=== PATIENT | female | born 1930 | race Caucasian/White ===

== ENCOUNTER 2016-09-17 09:53 | Emergency (ER) | payer MEDICARE, OTHER ==
[~2016-09-17] VITALS: Ht 167.6 cm; Wt 81.8 kg
[~2016-09-17 09:53] MED LIST: ACET325T51 PO; AMOX-366 PO; BISA-67 PO; BRIM5DRO AFFECT_EYE; CHOL100043 PO; CIPR-231 PO; GLUC500T12 PO; GUAI118L13 PO; LATA2.5D6 AFFECT_EYE; LEVO75TA4 PO; LORA0.5T PO; LOSA50TA37 PO; MAG DELAY64 MG PO; MAGN800O PO; MELA3TAB35 PO; MIRT15TA6 PO; MV,C1TAB15 PO; POLY17PO6 PO; POTA10TA12 PO; SENN-133 PO
[2016-09-17 09:56] VITALS: BP 188/98; PULSE 83; RESP 16; O2SAT 95
--- NOTE | 2016-09-17 10:05 | ED.REPORT ---
HPI-Abd Pain F 40 and Over Date of Service Sep 17, 2016 ED Provider: Dr. Trejo Pt is an 86 year old female with a history of HTN, dementia and hypothyroidism who was sent to the ED from an urgent care facility with concerns for increasing back and abdominal pain for the past 2 days. She reports that the pain has been persistent and has been worsening since its onset. The pain is aggravated with movement. She describes the pain as sharp, and denies any injury. Her son presents with her and reports that there is concern for a UTI. She reports increased urinary frequency, but denies fever, vomiting, diarrhea, chest pain, shortness of breath, headache, lower extremity pain, or any other symptoms. She reports that she has felt constipated for the last couple of days. Nursing Notes Stated Complaint: BACK PAIN Chief Complaint: Female Abdominal Pain Nursing Notes Reviewed: Yes Allergies: Coded Allergies: carisoprodol (Verified Allergy, Severe, 09/17/16) bacitracin (Verified Allergy, Unknown, 09/17/16) neomycin (Verified Allergy, Unknown, 09/17/16) polymyxin B (Verified Allergy, Unknown, 09/17/16) Scheduled Amoxicillin/Clav K 875-125 mg (Augmentin 875-125 mg) 1 Each Tablet 1 TABLET PO BID Brimonidine Tartrate/Timolol (Combigan Eye Drops) 5 Ml Drops 1 GTT AFFECT_EYE BID instill 1 drop in left eye twice daily Cholecalciferol (Vitamin D3) (Vitamin D) 1,000 Unit Tablet 2,000 UNIT PO DAILY Ciprofloxacin (Cipro) 500 Mg Tablet 500 MG PO BID Glucosamine (Glucosamine) 500 Mg Tablet 500 MG PO BID Latanoprost (Latanoprost) 2.5 Ml Drops 1 GTT AFFECT_EYE HS instill 1 drop into left eye once daily Levothyroxine (Levothyroxine) 75 Mcg Tablet 75 MCG PO DAILY Losartan Potassium (Losartan Potassium) 50 Mg Tablet 50 MG PO DAILY Magnesium (Mag Delay) 64 Mg Tab 64 MG PO BID Melatonin (Melatonin) 3 Mg Tablet 3 MG PO HS Mirtazapine (Mirtazapine) 15 Mg Tablet 15 MG PO HS Mv,Ca,Min/Iron Fum/FA/Lyco/Lut (S[employer] Multivit [employer] Mineral Cplt) 1 Each Tablet 1 EACH PO DAILY Polyethylene Glycol 3350 (Miralax) 17 Gm Powd.pack 17 GM PO DAILY Potassium Chloride ER (Potassium Chloride ER) 10 Meq Tablet 10 MEQ PO DAILY TAKE WITH FOOD Scheduled PRN Acetaminophen (Acetaminophen) 325 Mg Tablet 650 MG PO Q4H PRN PRN For Fever Bisacodyl (Dulcolax) 5 Mg Tablet.dr 5 MG PO DAILY PRN PRN For Constipation Guaifenesin/Codeine Phosphate (Cheratussin AC Syrup) 118 Ml Liquid 5 ML PO HS PRN PRN For Cough Lorazepam (Lorazepam) 0.5 Mg Tablet 0.25 MG PO BID PRN PRN For Anxiety Magnesium Hydroxide (Milk of Magnesia) 2,400 Mg/10 Ml Oral.susp 2,400 MG PO DAILY PRN PRN For Constipation Sennosides (Senna) 8.6 Mg Tablet 8.6 MG PO DAILY PRN PRN For Constipation General Time Seen by MD: 10:04 Chief Complaint Abdominal pain, Other (Back Pain) Hx Obtained From: Patient, Son Arrived By: Walk-in Sudden in Onset?: Yes Onset Occurred: 2 days ago Symptom Duration: Since onset Location: : Diffuse Quality: Painful Radiation: : Back Severity: Current: Moderate Severity: Maximum: Moderate Similar Sx Previous: Yes Past Medical History Past Medical History Blind in right eye Glaucoma Osteoarthritis Bilateral cataracts Hypothyroidism Dementia Anxiety Reports: Hypertension Past Surgical History Reports: Appendectomy, , Hysterectomy Smoking History Never Smoker Review of Systems Constitutional: Denies: Chills, Fever, Malaise, Weakness - generalized Respiratory: Denies: Non-productive cough, Shortness of breath, Wheezing Cardiovascular: Denies: Chest pain, Syncope GI: Reports: Abdominal pain, Constipation, Denies: Diarrhea, Nausea, Vomiting Female: Reports: Urinary frequency, Denies: Dysuria, Flank pain Musculoskeletal: Reports: Back pain, Denies: Neck pain Complete sys rev & neg: except as marked. Physical Exam Vital Signs Vital Signs (First) Date Time Temp Pulse Resp B/P Pulse Ox O2 Delivery O2 Flow Rate FiO2 09/17/16 09:56 36.6 83 16 188/98 95 Room Air Initial VS: Reviewed Head / Eyes: Atraumatic, Normocephalic, PERRL ENT: Mucous membranes moist, Conjunctiva normal, No scleral icterus Neck: Supple, Non-tender, Full range of motion Skin: Warm, Dry, No cyanosis Neurologic: Alert, Oriented, Nonfocal General/Constitutional: Awake, Alert Respiratory / Chest: Atraumatic, Breath sounds NL, Breath sounds = bilat, No respiratory distress, No rales, No rhonchi, No wheezing Cardiovascular: Heart rate NL, Regular rhythm, Heart sounds NL, No gallop, No murmurs, No rubs No peripheral edema Abdomen: Soft Discrete tenderness in the RLQ with guarding Back: Atraumatic discrete paraspinal tenderness about the lumbar region Interpretation & Diagnostics Lab Results Interpretation Result Diagram: 09/17/16 1030 09/17/16 1030 Test 09/17/16 10:30 09/17/16 11:00 White Blood Count 5.9th/mm3 (3.8-10.1) Red Blood Count 4.57mil/mm3 (3.90-5.20) Hemoglobin 13.9g/dL (12.0-15.6) Hematocrit 41.1% (35.0-46.0) Mean Corpuscular Volume 89.9fL (81-100) Mean Corpuscular Hemoglobin 30.4pg (27.0-35.0) Mean Corpuscular Hemoglobin Concent 33.8% (32.0-37.0) Red Cell Distribution Width 13.2% (12.3-15.4) Platelet Count 213bil/L (150-400) Neutrophils (%) (Auto) 70.2% (40-74) Lymphocytes (%) (Auto) 18.8% (14-46) Monocytes (%) (Auto) 7.4% (4-12) Eosinophils (%) (Auto) 3.4% (0-5) Basophils (%) (Auto) 0.2% (0-3) Sodium Level 135mEq/L (134-144) Potassium Level 4.1mEq/L (3.5-5.2) Chloride Level 96mEq/L (97-108) Carbon Dioxide Level 25mmol/L (18-29) Blood Urea Nitrogen 17mg/dL (8-27) Creatinine 0.74mg/dL (0.57-1.00) Estimat Glomerular Filtration Rate 106mL/min (>59) Glucose Level 115mg/dL (60-99) Lactic Acid Level 1.2mmol/L (0.4-2.0) Calcium Level 9.6mg/dL (8.5-10.1) Total Bilirubin 0.5mg/dL (0.0-1.2) Aspartate Amino Transf (AST/SGOT) 39U/L (0-50) Alanine Aminotransferase (ALT/SGPT) 27U/L (0-32) Alkaline Phosphatase 91U/L (25-165) Total Protein 7.6g/dL (6.4-8.4) Albumin 4.3g/dL (3.4-5.0) Lipase 50U/L (13-60) Urine Color Straw (YELLOW) Urine Appearance Clear (CLEAR,HAZY) Urine pH 7.0 (5.0-8.0) Urine Specific [place] 1.015 (1.003-1.035) Urine Protein Negativemg/dL (NEG,TRACE) Urine Glucose (UA) Negativemg/dL (NEGATIVE) Urine Ketones Negativemg/dL (NEGATIVE) Urine Occult Blood Negative (NEGATIVE) Urine Nitrite Negative (NEGATIVE) Urine Bilirubin Negative (NEGATIVE) Urine Urobilinogen Normalmg/dL (NORMAL) Urine Leukocyte Esterase Negative (NEGATIVE) Urine RBC 0-2/hpf (0-2) Urine WBC 0-5/hpf (0-5) Urine Epithelial Cells Occasional/hpf (NONE-MOD) Urine Crystals None seen (NONE SEEN) Urine Bacteria Moderate/hpf (NONE-FEW) Urine Hyaline Casts None/lpf (NONE) Urine Granular Casts None seen (NONE SEEN) Urine Waxy Casts None seen (NONE SEEN) Urine Red Blood Cell Casts None seen (NONE SEEN) Urine White Blood Cell Casts None seen (NONE SEEN) Urine Mucus None seen (None Seen) Urine Trichomonas None seen (NONE SEEN) Urine Yeast None (NONE SEEN) Urinalysis Comment None Urine Culture Reflexed Indicated ECG Interpretation ECG Interpretation: SR - 78 Multiple PVCs Borderline prolonged LA interval Probable left atrial enlargement LVH Inferior infarct Time: 10:26 Interpreted by: ED physician CT Abd / Pelvis Interpretation IMPRESSION: 1. Right lower quadrant anterior abdominal wall hernia may represent a spigelian hernia and contains nonobstructed ilium. 2. Low-density dilatation of the right common femoral vein may represent venous thrombus. Recommend correlation with ultrasound. 3. Low-density hepatic nodule most consistent with a simple cyst. Recommend confirmation with ultrasound which may be performed on a nonemergent basis. 4. Findings and recommendations discussed with Dr. Trejo via telephone [phone] at 12:20 pm on 09/17/2016 Dictated by: Harsha Greer M.D. on 09/17/2016 at 12:19 Interpretation / Wet Read by: Interpret - Radiologist, Discussed w radiologist Re-Eval/Medical Decision Source of Hx: Old records, Family Re-Evaluation/Progress : Time of Eval: 12:39 Re-Evaluation/Progress Note: RLQ still acutely tender with garding. She is informed of the plan for a surgical consult. All questions are addressed. Counseled Regarding: Diagnosis, Lab results, Need for admission Discharge & Departure Primary Impression: Abdominal pain Additional Impression: Back pain Disposition: Home Discharge Condition All VS Reviewed: Yes Condition: Stable Patient Instructions: Acute Abdominal Pain (ED) Additional Instructions: We believe that a hernia is the most likely cause for the abdominal pain you were experiencing when he came to the hospital today. This seems to have resolved. Dr. Nolan would like to see you in her clinic in the coming days. Please call to make an appointment. If the pain occurs again, please return to the emergency department if it does not resolve after 15 or 30 minutes. Referrals: Josue Buitrago DO (PCP) Lakeisha Nolan MDibe Attestation Portions of this note were transcribed by Nicole Gentile. I, Dr. Trejo personally performed the history, physical exam and medical decision-making; I reviewed and confirmed the accuracy of the information in the transcribed note. Signed by: Matilda Santos, 09/17/2016 [id number] copies to: Lakeisha Nolan MD; Josue Buitrago Kirk H MD Sep 17, 2016 10:05 CORAL GENTILE Sep 17, 2016 10:11
[2016-09-17] MEDS ORDERED: 0.9% Sodium Chloride 1,000 ML IV ONE (10:16)
[2016-09-17] MEDS ORDERED: Ondansetron 2 mg/mL 2 mL Inj IVPUSH PRN (10:20)
[2016-09-17] MEDS ORDERED: Ketorolac 15 mg/mL Inj IVPUSH ONE (10:20)
[2016-09-17] MEDS ORDERED: HYDROmorphone 0.5 mg/0.5 mL iSecure Syringe IVPUSH PRN (10:20)
[2016-09-17 11:11] LABS: BASOPHILS % (AUTO) 0.2 % (0-3); EOSINOPHILS % (AUTO) 3.4 % (0-5); MONOCYTES % (AUTO) 7.4 % (4-12); Mean Corpuscular Hemoglobin 30.4 pg (27.0-35.0); Mean Corpuscular Volume 89.9 fL (81-100); NEUTROPHILS % (AUTO) 70.2 % (40-74); Platelet Count 213 bil/L (150-400)
[2016-09-17 11:43] VITALS: BP 211/83; PULSE 83; O2SAT 98
[2016-09-17 12:29] LABS: APPEARANCE,URINE CLEAR (CLEAR,HAZY); COLOR,URINE STRAW (YELLOW); OCCULT BLOOD,URINE NEGATIVE (NEGATIVE)
[2016-09-17 12:30] LABS: UROBILINOGEN,URINE NORMAL (NORMAL)
--- NOTE | 2016-09-17 12:31 | DRSVH ---
PROCEDURE: CT ABDOMEN AND PELVIS WITH CONTRAST ([id number]) INDICATIONS: RLQ pain, Right low back Pain TECHNIQUE: After the administration of intravenous contrast, 5 mm thick sections acquired from the diaphragm to the symphysis. 5 mm coronal and sagittal reformats were acquired. For radiation dose reduction, the following was used: automated exposure control, adjustment of mA and/or kV according to patient siz e. COMPARISON: None. FINDINGS: Image quality: Excellent. ABDOMEN: Lung bases: Lung bases are clear. Heart size is normal. Solid organs: There is a 2.1 cm low-density right hepatic nodule most consistent with a simple cyst. Otherwise the liver is normal. The gallbladder, pancreas, spleen, adrenal glands and kidneys are nor mal.. Peritoneum and bowel: Possible wall thickening in the rectum. The colon is patulous and contains a mo derate amount of stool. A possible normal appendix is identified. There are no secondary signs of acu te appendicitis. There is a right lower quadrant hernia at the margin of the right rectus musculature which contains nonobstructed distal ileum. The stomach is decompressed but grossly normal. Nodes and vessels: No retroperitoneal or mesenteric adenopathy by size criteria. Aorta and inferior vena cava are normal in size. The right common femoral vein demonstrates low density in the slightl y enlarged (series 2 image 86). Miscellaneous: No ventral hernias. PELVIS: Genitourinary: Bladder wall thickness is normal. Miscellaneous: No inguinal hernias or adenopathy. Bones: No suspicious bony lesions. No vertebral body compression fractures. The osteopenia. Degene rative changes in both hips. IMPRESSION: 1. Right lower quadrant anterior abdominal wall hernia may represent a spigelian hernia and contains nonobstructed ilium. 2. Low-density dilatation of the right common femoral vein may represent venous thrombus. Recommend c orrelation with ultrasound. 3. Low-density hepatic nodule most consistent with a simple cyst. Recommend confirmation with ultraso und which may be performed on a nonemergent basis. 4. Findings and recommendations discussed with Dr. Trejo via telephone [phone] at 12:20 pm o n 09/17/2016 Dictated by: Harsha Greer M.D. on 09/17/2016 at 12:19 Approved by: Harsha Greer M.D. on 09/17/2016 at 12:30
[2016-09-17 14:10] VITALS: BP 173/93; PULSE 80; O2SAT 98
[2016-09-17 15:32] VITALS: BP 168/98; PULSE 85; O2SAT 95
--- NOTE | 2016-09-17 15:32 | CONS ---
[address] [address] CONSULTATION REPORT PATIENT: ELMER HUGHES : 1930 MR#: [id number] ADMIT: 09/17/2016 JOB ID: [id number] DATE OF SERVICE: 09/17/2016 CHIEF COMPLAINT: This is an 86-year-old woman with a right lower quadrant abdominal wall hernia. This consultation is requested by Ollie Trejo MD, of the Emergency Department. HISTORY OF PRESENT ILLNESS: This is an 86-year-old woman who resides in [facility] who presented with three days of right lower quadrant abdominal pain. She did not have associated nausea or vomiting. White blood cell count and comprehensive metabolic panel were normal. A CT scan of the abdomen was performed, revealing an anterior abdominal wall hernia with nonobstructed bowel within. I was consulted with the question of whether the patient needs surgery. The patient also complains of low back pain on the right near the spine. PAST MEDICAL HISTORY: Glaucoma, osteoarthritis, bilateral cataracts, hypothyroidism, hypertension, dementia, anxiety, blindness in the right eye. PAST SURGICAL HISTORY: Appendectomy, , hysterectomy. MEDICATIONS: Brimonidine/timolol, vitamin D3, ciprofloxacin, glucosamine, latanoprost, levothyroxine, losartan, magnesium, melatonin, mirtazapine, MiraLAX, potassium. PRN: Tylenol, bisacodyl, guaifenesin, lorazepam, milk of magnesia, senna. ALLERGIES: BACITRACIN, CARISOPRODOL, NEOMYCIN, POLYMYXIN. SOCIAL HISTORY: She is not a smoker. FAMILY HISTORY: Her mother had an unspecified cancer. REVIEW OF SYSTEMS: Could not be obtained due to the patient's difficulty with hearing, as she is nearly deaf. PHYSICAL EXAMINATION: Vital signs are within normal limits, with the exception of blood pressure 211/83. Head: Normocephalic. She is wearing glasses. Neck: Supple. Cardiac: Regular rate and rhythm. No murmurs, rubs, or gallops. Respiratory: Clear to auscultation bilaterally. Abdomen: Soft, minimally tender in the right lower quadrant with deep palpation. I reduced the hernia at the time of the examination and she did not have any pain thereafter, and there was no pain without palpation throughout the examination. Additionally, she had no increase in pain or tenderness when I asked her to stand after reduction. Extremities: No edema. Psychiatric: Normal cognition and judgment. Neurologic: Reduced hearing. LABORATORY: CBC is within normal limits. Comprehensive metabolic panel is within normal limits including lactate 1.2. IMAGING: Abdominal CT scan shows an anterior abdominal wall hernia, likely Spigelian, with a loop of bowel within it that is not obstructed. It also showed a possible low density dilation in the right common femoral vein, with ultrasound recommended, and a low-density hepatic nodule consistent with simple cyst, confirmation with ultrasound is recommended. ASSESSMENT: An 86-year-old woman with a nonincarcerated, nonstrangulated right lower quadrant abdominal hernia which was reduced and subsequently nontender. RECOMMENDATIONS: I do not recommend emergent surgery given that the patient's symptoms improved with reduction. However, outpatient elective surgery is recommended to prevent future symptoms, future incarceration, and the possibility of additional emergency department visits in the future. I therefore recommend that she follow up in my clinic early on an outpatient basis for consideration of surgical repair. This was discussed with the patient and with her son and they are both in agreement.
== END 2016-09-17 15:36 | disposition home or self-care (01) ==
LOC: SED 09:53
DX: R10.31 Right lower quadrant pain (principal); M54.5 Low back pain; R35.0 Frequency of micturition; K59.00 Constipation, unspecified; I10 Essential (primary) hypertension; F03.90 Unspecified dementia, unspecified severity, without behavioral disturbance, psychotic disturbance, mood disturbance, and anxiety; F41.9 Anxiety disorder, unspecified; H40.9 Unspecified glaucoma; E03.9 Hypothyroidism, unspecified; H54.41 Blindness, right eye, normal vision left eye; Z87.440 Personal history of urinary (tract) infections; Z98.890 Other specified postprocedural states; Z88.1 Allergy status to other antibiotic agents; Z88.8 Allergy status to other drugs, medicaments and biological substances
CPT/HCPCS: 36415; 74177; 80053; 81000; 83605; 83690; 85025; 87040; 87086; 87088; 87186; 93005; 96361; 96374; 99285; J1885; J7030; Q9967